=== PATIENT | female | born 1945 | race Caucasian/White ===

== ENCOUNTER 2022-12-15 15:06 | Emergency (ER) | payer MEDICARE, SELFPAY ==
--- NOTE | ~2022-12-15 | XR_ITS ---
EXAMINATION: XR ribs LT 2V w CXR 2V DATE: 12/15/2022 15:46 INDICATION: Left chest pain. Fall. TECHNIQUE: Frontal and lateral views of the chest and 2 views on 3 radiographs of the left ribs were obtained. COMPARISON: None. FINDINGS: CHEST TWO VIEWS: There is mild atelectasis in the lower lung zones. No pleural effusion or pneumothor ax. The heart size is normal. Surgical clips in the right upper quadrant are likely from cholecystect kevin. There is mild chronic anterior wedging of multiple thoracic vertebral bodies. LEFT RIBS: There is a fracture deformity of left ninth rib. There are old healed fractures of left fi fth and sixth ribs. IMPRESSION: 1. Age-indeterminate fracture of left ninth rib. 2. Mild atelectasis in the lower lung zones. Reviewed, dictated and finalized at location A.
[2022-12-15 15:19] VITALS: BP 146/84; PULSE 84; RESP 16; TEMP 36.4; O2SAT 95
--- NOTE | 2022-12-15 15:32 | ED.GENADULT ---
HPI - General Adult General Chief complaint: Fall Stated complaint: FALL/PAIN BEHIND L BREAST Time Seen by Provider: 12/15/22 15:30 Source: patient, RN notes reviewed and old records reviewed Mode of arrival: ambulatory Limitations: no limitations History of Present Illness HPI narrative: 77 year old female who presents to [facility] care with complaints of fall today around 1030 at her cousins house. Patient reports that she turned to sit on edge of bed of bed and lost balance and fell and hit the left upper lateral chest on recliner. Patient reports that she does have increased pain with deep breathing. and pain on palpation to left upper lateral chest. Patient denies any acute shortness of breath does have history of asthma. MD complaint: hit left upper lateral chest on recliner arm Onset (ago): hour(s) (1030 today) Location: chest (left lateral upper chest) Severity: moderate Severity scale (1-10): 6 Exacerbating factors: movement and other (deep breathing) Treatments prior to arrival: none Related Data Home Medications Medication Instructions Recorded Confirmed aspirin 325 mg tablet,delayed 325 mg PO DAILY 12/15/22 12/15/22 release budesonide-formoterol HFA 160 2 inh inhalation DIRECTED 12/15/22 12/15/22 mcg-4.5 mcg/actuation aerosol inhaler (Symbicort) flecainide 50 mg tablet 50 mg PO DAILY 12/15/22 12/15/22 fluticasone propionate 50 50 mcg intranasal DAILY 12/15/22 12/15/22 mcg/actuation nasal spray,suspension levothyroxine 125 mcg tablet 125 mcg PO DAILY 12/15/22 12/15/22 losartan 50 mg tablet 50 mg PO DAILY 12/15/22 12/15/22 montelukast 10 mg tablet 10 mg PO DAILY 12/15/22 12/15/22 pantoprazole 40 mg tablet,delayed 40 mg PO DAILY 12/15/22 12/15/22 release trazodone 50 mg tablet 50 mg PO DAILY 12/15/22 12/15/22 Allergies Allergy/AdvReac Type Severity Reaction Status Date / Time No Known Allergies Allergy Verified 12/15/22 15:52 Review of Systems Review of Systems: CONSTITUTIONAL: Denies fever, chills, or sweats. EYES: Denies visual changes, redness, or discharge. ENT: Denies rhinorrhea, congestion, sore throat, or otalgia. CARDIOVASCULAR: Reports on left lateral chest discomfort from fall,no palpitations, no edema. RESPIRATORY: Denies cough, reports increased pain with deep breathing, history of asthma GASTROINTESTINAL: Denies abdominal pain, nausea, vomiting, or diarrhea. GENITOURINARY: Denies dysuria or hematuria. SKIN: Denies rash or itching. MUSCULOSKELETAL: Denies back pain, joint pain, or myalgia. NEUROLOGIC: Denies headache, numbness, or weakness. PSYCHIATRIC: Denies anxiety or depression. All systems reviewed & are unremarkable except as noted in HPI and below PMFSH Past Medical History Medical History (Updated 12/15/22 @ 16:11 by Linnea Roman NP) Asthma Atrial fibrillation Elevated LDL cholesterol level Fracture of right hip requiring operative repair Hypertension Hypothyroidism Surgical History Surgical History (Updated 12/15/22 @ 15:56 by Linnea Roman NP) Hx of cholecystectomy Social History Social History (Updated 12/15/22 @ 15:54 by Linnea Roman NP) Smoking status: Never smoker Alcohol intake: unknown Substance use: never Gender identity (if verbalized by the patient): Female Comments At time of signature, agree with nursing past medical, surgical, social and family history. There is no relevant family history pertinent to the presenting complaint Exam Narrative: GENERAL: Well-appearing, well-nourished, and in no acute distress. HEAD: Normocephalic, atraumatic. EYES: PERRLA and EOMI. ENT: Nares clear, no rhinorrhea or epistaxis. Mucous membranes moist. TM's normal throat pink with no lesions or exudates NECK: Supple. no lymphadenopathy CHEST: Clear to auscultation. No respiratory distress.SAO2 95% on room air, increase pain to left chest with deep breathing, tender to palpation left lateral chest HEART: Regular rate and rhythm.
== END 2022-12-15 16:14 | disposition home or self-care (01) ==
PROVIDERS: Emergency Provider Registered Nurse
DX: S22.32XA Fracture of one rib, left side, initial encounter for closed fracture (principal); S27.9XXA Injury of unspecified intrathoracic organ, initial encounter; W18.39XA Other fall on same level, initial encounter; J45.909 Unspecified asthma, uncomplicated; I48.91 Unspecified atrial fibrillation; I10 Essential (primary) hypertension; E03.9 Hypothyroidism, unspecified; Z79.82 Long term (current) use of aspirin
CPT/HCPCS: 71046; 71100; 99213; G0463